=== PATIENT | male | born 1955 | race Caucasian/White ===

== ENCOUNTER → 2018-11-09 10:28 | Outpatient (CLI) | payer OTHER, SELFPAY ==
--- NOTE | 2018-11-09 10:31 | DI.RAD.S_ITS ---
PROCEDURE: XR SHOULDER LT MIN 2V INDICATIONS: fall onto left shoulder while skiing on 11/06/18 TECHNIQUE: 3 visualized ribs are intact. No other fracture or dislocation. views of the shoulder were acquired. COMPARISON: None. FINDINGS: Bones: There is widening of the acromial clavicular joint and slight elevation of the distal clavicle suggesting acromioclavicular joint separation. Soft tissues: No suspicious soft tissue calcifications. IMPRESSION: Findings suspicious for acromioclavicular joint separation. If further characterization is warranted, weighted views may be helpful. Dictated by: Radha Way M.D. on 11/09/2018 at 10:49 Approved by: Radha Way M.D. on 11/09/2018 at 10:50
== END ==
PROVIDERS: PCP Specialist; Visit Provider Physician Assistant
DX: S49.92XA Unspecified injury of left shoulder and upper arm, initial encounter (principal); V00.328A Other snow-ski accident, initial encounter
CPT/HCPCS: 73030